=== PATIENT | male | born 1995 | race Caucasian/White ===

== ENCOUNTER 2024-06-02 19:23 | Emergency (ER) | payer OTHER ==
[~2024-06-02] VITALS: Ht 177.8 cm; Wt 72.6 kg
[2024-06-02 20:16] VITALS: BP 120/81; PULSE 70; RESP 15; TEMP 98.1; O2SAT 99
== END 2024-06-02 22:20 | disposition left against medical advice (07) ==
LOC: MED 19:23
DX: R11.2 Nausea with vomiting, unspecified (principal); Z53.21 Procedure and treatment not carried out due to patient leaving prior to being seen by health care provider